=== PATIENT | male | born 1940 | race African-American/Black ===

== ENCOUNTER → 2016-11-17 | Outpatient (CLI) | payer MEDICARE, BC ==
--- NOTE | ~2016-11-17 | CR63 ---
[facility] A Service of [facility] / [facility] RADIOLOGY TEXT RESULTS PATIENT: NGHIA BENAVIDEZ LOCATION: [facility] : 40 UNIT #: [id number] AGE: [address]: Kimberly Gold MD SEX: M ORDER DR: [id number] [facility] [address] [facility]. [place], [place] [address] [id number] O MR#: [id number] Acc #: [id number] NAME: NGHIA BENAVIDEZ : 1940 SEX: M STUDY DATE/TIME: 11/17/2016 15:47 UNIT: [facility] ROOM: STUDY DESCRIPTION: CR Chest 2 View Attending Physician: Kimberly Gold M.D. Referring Physician: Kimberly Gold M.D. Ordering Physician: Kimberly Gold M.D. Primary Care Physician: Kimberly Gold M.D. MEDICAL IMAGING REPORT This report is preliminary unless electronic signature is present EXAM Two view chest. INDICATIONS Shortness of breath with activity starting a year ago. Patient also apparently has abnormal weight loss. COMPARISON STUDIES Prior study from 10/27/15. FINDINGS The heart size is within normal limits. There are background emphysematous changes. No pneumothorax or pleural effusion is seen, and I do not see any acute infiltrates. IMPRESSION Background emphysematous changes. No acute disease. No significant interval change when compared to October 27, 2015. Dictated by... Alee Jean M.D. THIS IS AN ELECTRONICALLY VERIFIED REPORT Alee Jean M.D. at 11/19/2016 10:48 AM AFF/ea TD: 11/18/2016 12:28 JOB #: [id number] MEDICAL IMAGING REPORT Page 1 of 1 COPY
== END | disposition home or self-care (01) ==
LOC: CRAD 15:28
DX: R63.4 Abnormal weight loss (principal); J84.10 Pulmonary fibrosis, unspecified
CPT/HCPCS: 71020